=== PATIENT | female | born 1955 | race Caucasian/White ===

== ENCOUNTER → 2016-07-03 | Outpatient (CLI) | payer OTHER ==
[~2016-07-03] MED LIST: ASP325T PO; ASPI-587 PO; ASPI-999 PO; CHOL100084 PO; CLOP75TA PO; CLOP75TA69 PO; CYAN25005 PO; CYCL1DRO OU; DOCU-238 PO; EZET1TAB16 PO; LISI-552 PO; METF500T4 PO; MTP25TSR PO; OMEG1CAP24 PO; RAMI10CA PO; RMP5C PO; VITA100T6 PO
--- OUTSIDE RECORDS SUMMARY | 2016-07-03 07:12 | XMS REPORT | Continuity of Care Document ---
Author Author [facility] Organization [facility] Address Unknown Phone Unavailable Allergies Active Description Code Type Severity Reaction Onset Reported/Identified Relationship to Patient Clinical Status Yes codeine [id number] Drug Allergy Unknown N/A 06/20/2014 Yes codeine [id number] Drug Allergy Moderate DIZZY/NAUSEATED 07/24/2015 Medications Problems Date Dx Coded Attending Type Code Diagnosis Diagnosed By 06/13/2014 Ot 397.0 06/13/2014 Ot 401.9 06/13/2014 Ot 414.01 06/13/2014 Ot 424.0 06/13/2014 Ot 401.9 06/13/2014 Ot 414.00 06/13/2014 Ot 397.0 06/13/2014 Ot 414.00 06/13/2014 Ot 424.0 06/13/2014 Ot 786.09 06/30/2014 Ot 272.4 HYPERLIPIDEMIA NEC/NOS 06/30/2014 Ot 278.00 OBESITY, NOS 06/30/2014 Ot 300.00 ANXIETY STATE NOS 06/30/2014 Ot 305.1 TOBACCO USE DISORDER 06/30/2014 Ot 401.9 HYPERTENSION NOS 06/30/2014 Ot 414.01 CORONARY ATHEROSCLEROSIS OF [place] CORON 06/30/2014 Ot 414.4 CORONARY ATHEROSCLEROSIS DUE TO CALCIFIE 06/30/2014 Ot 794.30 ABN CARDIOVASC STUDY NOS 06/30/2014 Ot V45.82 PERCUTANEOUS TRANSLUM CORON ANGIOPLASTY 06/30/2014 Ot V58.69 OTH MED,LT,CURRENT USE 06/30/2014 Ot V85.33 BODY MASS INDEX 33.0-33.9, ADULT 07/03/2014 Ot 998.12 HEMATOMA COMPLIC A PROC 07/20/2015 ARCENIO SIGALA, DILMA Perez Ot Z01.818 ENCOUNTER FOR OTHER PREPROCEDURAL EXAMIN 07/20/2015 ARCENIO SIGALA, DILMA Perez Ot Z12.11 ENCOUNTER FOR SCREENING FOR MALIGNANT NE 07/21/2015 ARCENIO SIGALA, DILMA Perez Ot Z01.818 07/21/2015 DILMA RG MD Ot Z12.11 07/24/2015 ARCENIO SIGALA, DILMA Perez Ot K57.90 DVRTCLOS OF INTEST, PART UNSP, W/O PERF 07/24/2015 ARCENIO SIGALA, DILMA Perez Ot Z12.11 ENCOUNTER FOR SCREENING FOR MALIGNANT NE 07/24/2015 ARCENIO SIGALA, DILMA Perez Ot Z95.5 PRESENCE OF CORONARY ANGIOPLASTY IMPLANT 07/25/2015 ARCENIO SIGALA, DILMA Perez Ot K57.90 07/25/2015 ARCENIO SIGALA, DILMA Perez Ot Z12.11 07/25/2015 ARCENIO SIGALA, DILMA Perez Ot Z95.5 07/26/2015 ARCENIO SIGALA, DILMA Perez Ot Z01.818 07/26/2015 ARCENIO SIGALA, DILMA Perez Ot Z12.11 11/07/2015 Ot 401.9 HYPERTENSION NOS 11/07/2015 Ot 414.00 CORON ATHEROSCLER NOS TYPE VESSEL, NATIV 11/07/2015 Ot 397.0 TRICUSPID VALVE DISEASE 11/07/2015 Ot 414.00 CORON ATHEROSCLER NOS TYPE VESSEL, NATIV 11/07/2015 Ot 424.0 MITRAL VALVE DISORDER 11/07/2015 Ot 786.09 RESPIRATORY ABNORM NEC 11/07/2015 REAGAN SIGALA, DELFIN Huang Ot 272.4 HYPERLIPIDEMIA NEC/NOS 11/07/2015 REAGAN SIGALA, DELFIN Huang Ot 305.1 TOBACCO USE DISORDER 11/07/2015 REAGAN SIGALA, DELFIN Huang Ot 414.00 CORON ATHEROSCLER NOS TYPE VESSEL, NATIV 11/07/2015 DELFIN KIRK MD Ot 424.0 MITRAL VALVE DISORDER 11/07/2015 Ot 272.4 HYPERLIPIDEMIA NEC/NOS 11/07/2015 Ot 305.1 TOBACCO USE DISORDER 11/07/2015 Ot 414.00 CORON ATHEROSCLER NOS TYPE VESSEL, NATIV 11/07/2015 Ot 424.0 MITRAL VALVE DISORDER 11/08/2015 CARA QUIROGA Ot E78.2 MIXED HYPERLIPIDEMIA 11/08/2015 CARA QUIROGA Ot I10 ESSENTIAL (PRIMARY) HYPERTENSION 11/08/2015 CARA QUIROGA Ot I25.10 ATHSCL HEART DISEASE OF [place] CORONARY 11/08/2015 CARA QUIROGA Ot I34.0 NONRHEUMATIC MITRAL (VALVE) INSUFFICIENC 11/09/2015 LINDESY-MARISOL PA, CARA K Ot E78.2 MIXED HYPERLIPIDEMIA 11/09/2015 CLAUDIA PA, CARA K Ot I10 ESSENTIAL (PRIMARY) HYPERTENSION 11/09/2015 CLAUDIA GAMBINO, CARA K Ot I25.10 ATHSCL HEART DISEASE OF [place] CORONARY 11/09/2015 CLAUDIA PA, CARA K Ot I34.0 NONRHEUMATIC MITRAL (VALVE) INSUFFICIENC 11/24/2015 CLAUDIA PA, CARA K Ot E78.2 MIXED HYPERLIPIDEMIA 11/24/2015 CLAUDIA PA, CARA K Ot I10 ESSENTIAL (PRIMARY) HYPERTENSION 11/24/2015 CLAUDIA GAMBINO, CARA K Ot I25.10 ATHSCL HEART DISEASE OF [place] CORONARY 11/24/2015 CLAUDIA PA, CARA K Ot I34.0 NONRHEUMATIC MITRAL (VALVE) INSUFFICIENC 12/07/2015 CLAUDIA GAMBINO, CARA K Ot E78.2 MIXED HYPERLIPIDEMIA 12/07/2015 CLAUDIA GAMBINO, CARA K Ot I10 ESSENTIAL (PRIMARY) HYPERTENSION 12/07/2015 CLAUDIA GAMBINO, CARA K Ot I25.10 ATHSCL HEART DISEASE OF [place] CORONARY 12/07/2015 CLAUDIA GAMBINO, CARA K Ot I34.0 NONRHEUMATIC MITRAL (VALVE) INSUFFICIENC 12/07/2015 CLAUDIA GAMBINO, CARA K Ot E78.2 MIXED HYPERLIPIDEMIA 12/07/2015 CLAUDIA GAMBINO, CARA K Ot I10 ESSENTIAL (PRIMARY) HYPERTENSION 12/07/2015 CLAUDIA GAMBINO, CARA K Ot I25.10 ATHSCL HEART DISEASE OF [place] CORONARY 12/07/2015 CLAUDIA GAMBINO, CARA K Ot I34.0 NONRHEUMATIC MITRAL (VALVE) INSUFFICIENC 12/12/2015 CLAUDIA GAMBINO, CARA K Ot E78.2 MIXED HYPERLIPIDEMIA 12/12/2015 CLAUDIA PA, CARA K Ot I10 ESSENTIAL (PRIMARY) HYPERTENSION 12/12/2015 CLAUDIA PA, CARA K Ot I25.10 ATHSCL HEART DISEASE OF [place] CORONARY 12/12/2015 CLAUDIA GAMBINO, CARA K Ot I34.0 NONRHEUMATIC MITRAL (VALVE) INSUFFICIENC 12/13/2015 DELFIN KIRK MD Ot E11.9 TYPE 2 DIABETES MELLITUS WITHOUT COMPLIC 12/13/2015 DELFIN KIRK MD Ot E66.9 OBESITY, UNSPECIFIED 12/13/2015 DELFIN KIRK MD Ot E78.5 HYPERLIPIDEMIA, UNSPECIFIED 12/13/2015 DELFIN KIRK MD Ot I10 ESSENTIAL (PRIMARY) HYPERTENSION 12/13/2015 DELFIN KIRK MD Ot I25.10 ATHSCL HEART DISEASE OF [place] CORONARY 12/13/2015 DELFIN KIRK MD Ot I34.0 NONRHEUMATIC MITRAL (VALVE) INSUFFICIENC 12/13/2015 DELFIN KIRK MD Ot R94.39 ABNORMAL RESULT OF OTHER CARDIOVASCULAR 12/13/2015 DELFIN KIRK MD Ot Z72.0 TOBACCO USE 12/13/2015 DELFIN KIRK MD Ot Z79.899 OTHER ALF (CURRENT) DRUG THERAPY 12/13/2015 DELFIN KIRK MD Ot Z95.5 PRESENCE OF CORONARY ANGIOPLASTY IMPLANT 12/21/2015 CARA QUIROGA Ot E78.2 MIXED HYPERLIPIDEMIA 12/21/2015 CARA QUIROGA Ot I10 ESSENTIAL (PRIMARY) HYPERTENSION 12/21/2015 CARA QUIROGA Ot I25.10 ATHSCL HEART DISEASE OF [place] CORONARY 12/21/2015 CARA QUIROGA Ot I34.0 NONRHEUMATIC MITRAL (VALVE) INSUFFICIENC 12/25/2015 DELFIN KIRK MD Ot E11.9 TYPE 2 DIABETES MELLITUS WITHOUT COMPLIC 12/25/2015 DELFIN KIRK MD Ot E66.9 OBESITY, UNSPECIFIED 12/25/2015 DELFIN KIRK MD Ot E78.5 HYPERLIPIDEMIA, UNSPECIFIED 12/25/2015 DELFIN KIRK MD Ot I10 ESSENTIAL (PRIMARY) HYPERTENSION 12/25/2015 DELFIN KIRK MD Ot I25.10 ATHSCL HEART DISEASE OF [place] CORONARY 12/25/2015 DELFIN KIRK MD Ot I34.0 NONRHEUMATIC MITRAL (VALVE) INSUFFICIENC 12/25/2015 DELFIN KIRK MD Ot R94.39 ABNORMAL RESULT OF OTHER CARDIOVASCULAR 12/25/2015 DELFIN KIRK MD Ot Z72.0 TOBACCO USE 12/25/2015 DELFIN KIRK MD Ot Z79.899 OTHER ALF (CURRENT) DRUG THERAPY 12/25/2015 DELFIN KIRK MD Ot Z95.5 PRESENCE OF CORONARY ANGIOPLASTY IMPLANT 07/03/2016 Ot 397.0 TRICUSPID VALVE DISEASE 07/03/2016 Ot 414.00 CORON ATHEROSCLER NOS TYPE VESSEL, NATIV 07/03/2016 Ot 424.0 MITRAL VALVE DISORDER 07/03/2016 Ot 786.09 RESPIRATORY ABNORM NEC 07/03/2016 DELFIN KIRK MD Ot 272.4 HYPERLIPIDEMIA NEC/NOS 07/03/2016 DELFIN KIRK MD Ot 305.1 TOBACCO USE DISORDER 07/03/2016 DELFIN KIRK MD Ot 414.00 CORON ATHEROSCLER NOS TYPE VESSEL, NATIV 07/03/2016 DELFIN KIRK MD Ot 424.0 MITRAL VALVE DISORDER 07/03/2016 Ot 272.4 HYPERLIPIDEMIA NEC/NOS 07/03/2016 Ot 305.1 TOBACCO USE DISORDER 07/03/2016 Ot 414.00 CORON ATHEROSCLER NOS TYPE VESSEL, NATIV 07/03/2016 Ot 424.0 MITRAL VALVE DISORDER 07/03/2016 CARA QUIROGA Ot E78.2 MIXED HYPERLIPIDEMIA 07/03/2016 CARA QUIROGA Ot I10 ESSENTIAL (PRIMARY) HYPERTENSION 07/03/2016 CARA QUIROGA Ot I25.10 ATHSCL HEART DISEASE OF [place] CORONARY 07/03/2016 CARA QUIROGA Ot I34.0 NONRHEUMATIC MITRAL (VALVE) INSUFFICIENC 07/03/2016 CARA QUIROGA Ot E78.2 MIXED HYPERLIPIDEMIA 07/03/2016 CARA QUIROGA Ot I10 ESSENTIAL (PRIMARY) HYPERTENSION 07/03/2016 CARA QUIROGA Ot I25.10 ATHSCL HEART DISEASE OF [place] CORONARY 07/03/2016 CARA QUIROGA Ot I34.0 NONRHEUMATIC MITRAL (VALVE) INSUFFICIENC Procedures Results Test Result Range Automated blood complete blood count (hemogram) panel - 12/13/15 07:43 Blood leukocytes automated count (number/volume) 6.7 10*3/ uL 4.3-11.0 Blood erythrocytes automated count (number/volume) 4.96 10*6 /uL 4.35-5.85 Venous blood hemoglobin measurement (mass/volume) 15.0 g/dL 11.5-16.0 Blood hematocrit (volume fraction) 44 % 35-52 Automated erythrocyte mean corpuscular volume 89 [foz_us] 80-99 Automated erythrocyte mean corpuscular hemoglobin (mass per erythrocyte) 30 pg 25-34 Automated erythrocyte mean corpuscular hemoglobin concentration measurement ( mass/volume) 34 g/dL 32-36 Automated erythrocyte distribution width ratio 13.7 % 10.0-14.5 Automated blood platelet count (count/volume) 156 10*3/uL 130-400 Automated blood platelet mean volume measurement 10.1 [foz_ us] 7.4-10.4 Complete urinalysis with reflex to culture - 12/13/15 07:43 Urine color determination YELLOW NRG Urine clarity determination CLEAR NRG Urine pH measurement by test strip 5 5- 9 Specific gravity of urine by test strip 1.020 1.016-1.022 Urine protein assay by test strip, semi-quantitative NEGATIVE NEGATIVE Urine glucose detection by automated test strip NEGATIVE NEGATIVE Erythrocytes detection in urine sediment by light microscopy NEGATIVE NEGATIVE Urine ketones detection by automated test strip NEGATIVE NEGATIVE Urine nitrite detection by test strip NEGATIVE NEGATIVE Urine total bilirubin detection by test strip NEGATIVE NEGATIVE Urine urobilinogen measurement by automated test strip (mass/volume) NORMAL NORMAL Urine leukocyte esterase detection by dipstick NEGATIVE NEGATIVE Automated urine sediment erythrocyte count by microscopy (number/high power field) NONE NRG Automated urine sediment leukocyte count by microscopy (number/high power field ) NONE NRG Bacteria detection in urine sediment by light microscopy TRACE NRG Squamous epithelial cells detection in urine sediment by light microscopy 2-5 NRG Crystals detection in urine sediment by light microscopy NONE NRG Casts detection in urine sediment by light microscopy NONE NRG Mucus detection in urine sediment by light microscopy NEGATIVE NRG Complete urinalysis with reflex to culture NO NRG PT panel in platelet poor plasma by coagulation assay - 12/13/15 07:43 Prothrombin time (PT) in platelet poor plasma by coagulation assay 11.7 s 12.2-14.7 INR in platelet poor plasma or blood by coagulation assay 0.9 0.8-1.4 Activated partial thromboplastin time (aPTT) in platelet poor plasma bycoagulation assay - 12/13/15 07:43 Activated partial thromboplastin time (aPTT) in platelet poor plasma bycoagulation assay 29 s 24-35 Comprehensive metabolic panel - 12/13/15 07:43 Serum or plasma sodium measurement (moles/volume) 142 mmol/ L 135-145 Serum or plasma potassium measurement (moles/volume) 4.2 mmol/L 3.6-5.0 Serum or plasma chloride measurement (moles/volume) 109 mmol /L 98-107 Carbon dioxide 23 mmol/L 21-32 Serum or plasma anion gap determination (moles/volume) 10 mmol/L 5-14 Serum or plasma urea nitrogen measurement (mass/volume) 10 mg/dL 7-18 Serum or plasma creatinine measurement (mass/volume) 0.67 mg /dL 0.60-1.30 Serum or plasma urea nitrogen/creatinine mass ratio 15 NRG Serum or plasma creatinine measurement with calculation of estimated glomerular filtration rate > NRG Serum or plasma glucose measurement (mass/volume) 133 mg/dL 70-105 Serum or plasma calcium measurement (mass/volume) 9.3 mg/dL 8.5-10.1 Serum or plasma total bilirubin measurement (mass/volume) 0.5 mg/dL 0.1-1.0 Serum or plasma alkaline phosphatase measurement (enzymatic activity/volume) 71 U/L 40-136 Serum or plasma aspartate aminotransferase measurement (enzymatic activity/ volume) 23 U/L 5-34 Serum or plasma alanine aminotransferase measurement (enzymatic activity/volume ) 24 U/L 0-55 Serum or plasma protein measurement (mass/volume) 6.7 g/dL 6.4-8.2 Serum or plasma albumin measurement (mass/volume) 4.0 g/dL 3.2-4.5 Lipid 1996 panel - 12/13/15 07:43 Serum or plasma triglyceride measurement (mass/volume) 110 mg/dL <150 Serum or plasma cholesterol measurement (mass/volume) 158 mg /dL < 200 Serum or plasma cholesterol in HDL measurement (mass/volume) 54 mg/dL 40-60 Cholesterol in LDL [mass/volume] in serum or plasma by direct assay 83 mg/dL 1-129 Serum or plasma cholesterol in VLDL measurement (mass/volume) 22 mg/dL 5-40 Methicillin resistant Staphylococcus aureus (MRSA) screening culture - 07:43 Methicillin resistant Staphylococcus aureus (MRSA) screening culture NEG NRG Encounters ACCT No. Visit Date/Time Discharge Status Pt. Type Provider Facility Loc./Unit Complaint [id number] 12/13/2015 07:13:00 2015 13:45:00 DIS Outpatient DELFIN KIRK MD [facility] CATH ABNORMAL STRESS TEST [id number] 07/24/2015 06:46:00 2015 09:40:00 DIS Outpatient DILMA RG MD [facility] SDC SCREENING [id number] 07/20/2015 05:39:00 2015 15:03:00 DIS Outpatient DILMA RG MD [facility] PREOP SCREENING [id number] 06/14/2014 07:23:00 2014 23:59:59 CLS Outpatient DELFIN KIRK MD [facility] CARD CAD,HLP,MR,TOBACCO USE [id number] 07/03/2016 07:08:00 ACT Outpatient GIAN MAURICE [facility] RAD STRAIN OF OTHER MUSCLES [id number] 12/06/2015 10:29:00 ACT Outpatient CARA CANSECO [facility] CARD CAD,HTN,HLP,MR [id number] 11/07/2015 08:08:00 ACT Outpatient CARA CANSECO [facility] CARD CAD,HTN,HLP,MR [id number] 07/29/2014 16:54:00 Document Registration [id number] 07/03/2014 08:12:00 Document Registration [id number] 06/13/2014 10:13:00 Document Registration [id number] 07/01/2012 09:31:00 Document Registration [id number] 11/26/2010 07:08:00 Document Registration [id number] 07/18/2009 08:49:00 Document Registration
--- NOTE | 2016-07-03 11:30 | Diagnostic Imaging Report ---
EXAMINATION: MRI of the left knee without contrast. TECHNIQUE: Multiplanar, multisequence non contrast-enhanced MRI of the left lower extremity was accomplished. INDICATION: Injury, knee pain. COMPARISON: There are no previous exams available for comparison. FINDINGS: On the proton-dense sagittal series, there is a prominent area of increased signal within the substance of the posterior horn of the medial meniscus. There is a smaller area of increased signal in the anterior horn of the medial meniscus as well. These signal abnormalities do not communicate with the articular surfaces of the meniscus, however, and consequently are felt to be more likely due to degenerative disease than to a meniscus tear. The lateral meniscus is intact. The anterior and posterior cruciate ligaments, the quadriceps and infrapatellar tendons, the collateral ligaments, the biceps femoris tendon, and the iliotibial band show no evidence for an acute injury. There is no sign of a tear of either the medial or lateral retinaculum either. However, there is bone edema along the medial aspect of the patella. This may be secondary to a recent contusion and/or microfracture. There is no other abnormal signal arising from the osseous structures to suggest bone edema or a fracture. There is mild degenerative disease involving the articular surfaces of the medial and lateral femoral condyles, and there is moderate narrowing of the lateral aspect of the patellofemoral space. The knee joint is otherwise fairly well maintained. There is a small joint effusion present. Furthermore, there is a sizable loculated Linda's cyst. The cyst is not visualized in its entirety, but it measures 11-12 cm in length and 1.7 x 1.9 cm in maximum AP and transverse diameters. There is also some distortion of the musculature about the cyst. This may be secondary to extravasation of the cyst contents into the adjacent musculature with resultant edema/inflammation. There is also mild edema/inflammation of the musculature along the posterolateral aspect of the knee joint and on each side of the knee joint itself. IMPRESSION: 1. There is degenerative disease involving the medial meniscus, but there is no evidence for a tear of either meniscus. 2. The major ligaments and tendons are intact. 3. There does appear to be a small area of bone edema involving the medial aspect of the patella. Most likely, this is related to a recent contusion and/or microfracture. There is no acute bony abnormality noted otherwise. 4. There is a moderate joint effusion present, and there is generalized edema/inflammation of the soft tissue about the knee joint. There is also a lengthy Linda's cyst. The edema/inflammation of the musculature about the cyst may be secondary to partial extravasation of the cyst contents into the musculature. Dictated by: Dictated on workstation # [id number]
== END ==
LOC: RAD 07:08
PROVIDERS: ATTEND Nurse Practitioner
DX: S86.112A Strain of other muscle(s) and tendon(s) of posterior muscle group at lower leg level, left leg, initial encounter (principal); W19.XXXA Unspecified fall, initial encounter; Y92.481 Parking lot as the place of occurrence of the external cause; Y99.0 Civilian activity done for income or pay
CPT/HCPCS: 73721

== ENCOUNTER → 2017-06-25 | Outpatient (CLI) | payer BC, OTHER ==
[~2017-06-25] MED LIST changes: +CATHETER FLUSH 10 ML SYR IV PRN
[2017-06-25 13:05] VITALS: BP 136/75
--- NOTE | 2017-06-26 10:13 | STRESS TEST ---
DATE OF SERVICE: 06/25/2017 EXERCISE MYOVIEW STRESS TEST REPORT REFERRING PHYSICIAN: Dr. Alexis. Baseline heart rate is 82, baseline blood pressure 122/71. Baseline EKG is sinus rhythm with no ischemic changes. SUMMARY: The patient was injected with 9.51 mCi of technetium-99 Myoview and the resting images were obtained. Then, the patient started exercising with a baseline heart rate, blood pressure and EKG mentioned above. She was able to exercise for a total of 5 minutes on standard Natanael protocol. With peak exercise level, EKG was showing minimal nondiagnostic changes. Blood pressure was 215/106 at peak stress level. During recovery, heart rate and blood pressure returned to baseline. EKG returned to baseline. The resting and stress images were reviewed and compared in the short axis, horizontal long axis, and vertical long axis views. Review of the images showed breast attenuation affecting the quality of the images. There is decreased uptake involving the anteroapical segment with subtle reversibility. SSS is 3, SDS 2. TID value 0.91. On the gated images, the left ventricle appeared to be normal size with normal contractility. Calculated ejection fraction of 70%. CONCLUSION: 1. Fair exercise tolerance, a total of 5 minutes on standard Natanael protocol, total of 7 METS achieving 95% of maximum expected heart rate. 2. Minimal nondiagnostic EKG changes with exercise returned to baseline during recovery. 3. Breast attenuation affecting the quality of the images with typical female pattern. No significant ischemia or infarction was noted. 4. Normal left ventricular size with normal contractility. Calculated ejection fraction 70%. Job ID: [id number] DocumentID: [id number] Dictated Date: 06/26/2017 07:56:17 Online Marketing Strategist Date: 06/26/2017 10:12:50 Dictated By: DELFIN KIRK MD
== END ==
LOC: CARD 09:39
PROVIDERS: ATTEND Physician Assistant
DX: I25.10 Atherosclerotic heart disease of native coronary artery without angina pectoris (principal); I10 Essential (primary) hypertension; E78.5 Hyperlipidemia, unspecified; I07.1 Rheumatic tricuspid insufficiency
CPT/HCPCS: 78452; 93017; 93306

== ENCOUNTER → 2020-10-11 | Outpatient (CLI) | payer MEDICARE, OTHER ==
[~2020-10-11] MED LIST changes: -DOCU-238 PO; +DOCU-241 PO; -LISI-552 PO; +LISI20TA26 PO; +METF-397 PO; -METF500T4 PO
[2020-10-11 13:12] VITALS: BP 109/64
--- NOTE | 2020-10-11 15:29 | Cardiology Stress Test Report ---
Stress Test Report Date of Procedure/Referring: Date of Procedure: Oct 11, 2020 Beverley Bedolla Admitting Physician Katelyn Alexis MD Indications: HTN Baseline Heart Rate: 72 Baseline Blood Pressure: Blood Pressure Systolic: 109 Blood Pressure Diastolic: 64 Vital Signs Date Time Temp Pulse Resp B/P (MAP) Pulse Ox O2 Delivery O2 Flow Rate FiO2 10/11/20 13:12 90 16 109/64 (79) 97 Room Air Baseline Vital Signs Vital Signs Date Time Temp Pulse Resp B/P (MAP) Pulse Ox O2 Delivery O2 Flow Rate FiO2 10/11/20 13:12 90 16 109/64 (79) 97 Room Air Baseline EKG: Baseline EKG: HTN Summary: After explaining the procedure and details to the patient, she signed the consent and was brought to the stress nuclear laboratory. Patient exercised on standard Natanael protocol, EKG, heart rate and blood pressure were monitored continuously, resting and stress doses of radio tracer were injected, imaging was acquired and reviewed in the short axis, horizontal long axis and vertical long axis views Patient was able to exercise for a total of 6.30 minutes on Natanael protocol, METs 7.9 Maximum heart rate 141 Maximum blood pressure 225/53 Stress EKG, Minimal nondiagnostic changes Recovery EKG, Return to baseline TID: 1.08 SSS: 3 SDS: 2 EF: 72 Conclusion: 1. Good exercise tolerance for 6-minute 30 seconds on standard Natanael protocol, 7.9 METS achieving 90% of maximal expected heart rate 2. Appropriate heart rate response to exercise with severe hypertensive res ponse to exercise with peak blood pressure 225/53 return to baseline during recovery 3. Minimal nondiagnostic EKG changes with exercise return to baseline during recovery 4. Breast attenuation with typical female pattern, no significant ischemia or infarction on SPECT images, mild decreased uptake at the anterior apical segment with mild reversibility 5. Normal left ventricular size, EF 72% DELFIN KIRK MD Oct 11, 2020 15:29
== END ==
LOC: CARD 11:00
PROVIDERS: ATTEND Physician Assistant
DX: I35.8 Other nonrheumatic aortic valve disorders (principal); I10 Essential (primary) hypertension; I25.10 Atherosclerotic heart disease of native coronary artery without angina pectoris
CPT/HCPCS: 78452; 93017; 93306; A9502

== ENCOUNTER → 2022-01-14 | Outpatient (REF) ==
[~2022-01-14] MED LIST changes: -CATHETER FLUSH 10 ML SYR IV PRN; -DOCU-241 PO; +DOCU-26 PO
--- NOTE | 2022-01-14 13:26 | Diagnostic Imaging Report ---
INDICATION: Trauma to great toe. FINDINGS: The alignment is normal. There is no fracture or dislocation. There are no radiopaque foreign bodies. Soft tissues are unremarkable. IMPRESSION: No acute fracture or dislocation. Dictated by: Dictated on workstation # [id number]
== END ==
LOC: OCC 12:49
PROVIDERS: ATTEND Nurse Practitioner Family
DX: S99.929A Unspecified injury of unspecified foot, initial encounter (principal); X58.XXXA Exposure to other specified factors, initial encounter
CPT/HCPCS: 73660

== ENCOUNTER → 2022-02-07 | Outpatient (CLI) | payer MEDICARE, OTHER ==
--- NOTE | 2022-02-07 15:47 | Diagnostic Imaging Report ---
Exam: MRI right foot without contrast. Date: February 07, 2022. Indication: 66-year-old female, injury of the right great toe. Redness and region of injury. Comparison: Right toe radiographs January 14, 2022. Technique: Multiple noncontrast MR sequences of the right foot were obtained. Findings: There is a skin defect dorsally located at the level of first distal phalanx which could relate to a soft tissue ulcer. Recommend correlation with physical exam. There is prominent underlying dorsal subcutaneous edema and fluid signal. Areas of abnormal signal in the soft tissues directly contact the first distal phalanx. There is some subtle T1 marrow signal loss in the first distal phalanx as well as edema throughout the first distal phalanx. There is no first interphalangeal joint effusion. There is no marrow signal abnormality in the first proximal phalanx. There is no evidence of tenosynovitis. There is no identified tendon tear. There is no identified focal fluid collection or abscess on noncontrast imaging assessment. There is dorsal subcutaneous edema of the foot. Impression: 1. Findings most concerning for acute osteomyelitis involving the entire extent of the first distal phalanx. 2. Dorsal skin defect at the level of the first distal phalanx likely reflecting soft tissue ulcer. Recommend correlation. 3. No identified focal fluid collection or abscess. 4. No evidence of tenosynovitis. Dictated by: Dictated on workstation # [id number]
== END ==
LOC: RAD 13:51
PROVIDERS: ATTEND Podiatrist Foot & Ankle Surgery
DX: S93.691A Other sprain of right foot, initial encounter (principal); X58.XXXA Exposure to other specified factors, initial encounter

== ENCOUNTER 2022-02-26 05:33 | Outpatient (CLI) | payer OTHER ==
[~2022-02-26] VITALS: Ht 167.7 cm; Wt 82.0 kg
[2022-03-01] MEDS ORDERED: ACHD5005 PO (14:56)
[2022-03-01] MEDS ORDERED: CEPH500C PO (14:56)
== END 2022-02-26 13:27 | disposition home or self-care (01) ==
LOC: PREOP 05:33
PROVIDERS: ATTEND Podiatrist Foot & Ankle Surgery
DX: Z01.818 Encounter for other preprocedural examination (principal)

== ENCOUNTER 2022-03-01 13:03 | Day surgery (SDC) | payer OTHER ==
[~2022-03-01] VITALS: Ht 167.7 cm; Wt 82.0 kg
[2022-03-01] MEDS ORDERED: LACTATED RINGERS 1,000 ML IV PRN (13:15)
[2022-03-01] MEDS ORDERED: ceFAZolin INJECTION 1,000 MG in NS (IVPB) 50 ML IV ONE (13:15)
[2022-03-01] MEDS ORDERED: LIDOCAINE 1% INJ 10 ML VIAL ONE (13:15)
[2022-03-01] MEDS ORDERED: BUPIVACAINE 0.5% 30 ML (SENSORCAINE) VIAL ONE (13:15)
[2022-03-01 13:17] VITALS: BP 142/88
[2022-03-01] MEDS ORDERED: fentaNYL INJ 100 MCG/2 ML AMP ONE (13:20)
[2022-03-01] MEDS ORDERED: proPOfol 200 MG/20 ML (DIPRIVAN) VIAL IV ONE (13:20)
[2022-03-01] MEDS ORDERED: LIDOCAINE PF 2% 5 ML (XYLOCAINE) VIAL ONE (13:20)
[2022-03-01] MEDS ORDERED: ONDANSETRON 4 MG/2 ML (SDV) Z0FRAN ONE (13:20)
[2022-03-01] MEDS ORDERED: MIDAZOLAM 2 MG/2 ML (VERSED) VIAL ONE (13:20)
[2022-03-01] MEDS ORDERED: METF-399 PO (13:50)
--- NOTE | 2022-03-01 13:53 | Progress Note-Pre Operative ---
Pre-Operative Progress Note Date of Available H&P: Mar 01, 2022 Date H&P Reviewed: Mar 01, 2022 Time H&P Reviewed: 13:53 Pre-Operative Diagnosis: Osteomyelitis right hallux MARLEN THOMSON DPAna Mar 01, 2022 13:53
[2022-03-01] MEDS ORDERED: LISI40TA9 PO ×2 (14:01)
[2022-03-01] MEDS ORDERED: ZINC10LO4 PO (14:01)
[2022-03-01] MEDS ORDERED: AMLO-250 PO (14:01)
[2022-03-01] MEDS ORDERED: CINN500C2 PO (14:01)
[2022-03-01] MEDS ORDERED: ASCO100024 PO (14:01)
[2022-03-01] MEDS ORDERED: METO50TA7 PO (14:01)
[2022-03-01] MEDS ORDERED: LACT1CAP74 PO (14:01)
[2022-03-01] MEDS ORDERED: BUPIVACAINE 0.5% 30 ML (SENSORCAINE) VIAL INJ ONE (14:23)
[2022-03-01] MEDS ORDERED: LIDOCAINE 1% INJ 10 ML VIAL INJ ONE (14:24)
[2022-03-01] MEDS ORDERED: PROPOFOL INJECTION 50 ML IV ONE (14:36)
[2022-03-01 14:49] VITALS: BP 133/70
--- NOTE | 2022-03-01 14:54 | Progress Note-Post Operative ---
Post-Operative Progess Note Surgeon (s)/Acid Dipper (s) Surgeon MARLEN THOMSON DPM Acid Dipper: None Pre-Operative Diagnosis Osteomyelitis right hallux Post-Operative Diagnosis Same Procedure & Operative Findings Date of Procedure 03/01/22 Procedure Performed/Findings Partial Amputation of the Right Hallux Anesthesia Type MAC Estimated Blood Loss Estimated blood loss (mL): Minimal Specimens/Packing Specimens Removed Distal Phalanx, right hallux Packing: None MARLEN THOMSON DPM Mar 01, 2022 14:53
[2022-03-01] MEDS ORDERED: CEPH500C PO (14:56)
[2022-03-01] MEDS ORDERED: ACHD5005 PO (14:56)
--- NOTE | 2022-03-01 14:58 | Anesthesia-General Post-Op ---
MAC Patient Condition Mental Status/LOC: Same as Preop Cardiovascular: Satisfactory Nausea/Vomiting: Absent Respiratory: Satisfactory Pain: Controlled Complications: Absent Post Op Complications Complications None Follow Up Care/Instructions Patient Instructions None needed. Anesthesiology Discharge Order Discharge Order Patient is doing well, no complaints, stable vital signs, no apparent adverse anesthesia problems. No complications reported per nursing. PATSY CLAYTON CRNA Mar 01, 2022 14:58
[2022-03-01 15:00] VITALS: BP 102/74
[2022-03-01] MEDS ORDERED: ONDANSETRON 4 MG/2 ML (SDV) Z0FRAN IVP PRN (15:00)
[2022-03-01] MEDS ORDERED: HYDROmorphone 2 MG/ML VIAL (DILAUDID) IV ONE (15:00)
[2022-03-01] MEDS ORDERED: HYDROcodone/APAP 5 MG/325 MG (LORTAB) TAB PO PRN (15:00)
[2022-03-01] MEDS ORDERED: LACTATED RINGERS 1,000 ML IV SCH (15:00)
[2022-03-01 15:10] VITALS: BP 110/83
[2022-03-01 15:15] VITALS: BP_SYST 121; BP_SYST 123; BP_DIAS 54; BP_DIAS 59
--- NOTE | 2022-03-01 15:36 | Physical Therapy Ortho Eval ---
PT Orthopedic Evaluation Type of Surgery osteomyelitis right hallux Prior Level of Function Current Living Status: Spouse Locomotion (Upon Admit): Independent patient was issued a RW Subjective Subjective Patient in bed pre tx, agrees to PT,has no complaints of pain. Entry Into Home: Stairs Without Railing Steps Into Home: 3 Motor Control Motor Control: Motor Control WNL ROM ROM: WFL Transfer SCALE: Activities may be completed with or without assistive devices. 1-Agaicoemep-qlscdxh completes the activity by him/herself with no assistance from a helper. 5-Set-up or Clean-up Assistance-helper sets up or cleans up; patient completes activity. Teague assists only prior to or following the activity. 4-Supervision or Touching Assistance-helper provides verbal cues and/or touching/steadying and/or contact guard assistance as patient completes activity. Assistance may be provided throughout the activity or intermittently. 3-Partial/Moderate Assistance-helper does LESS THAN HALF the effort. Teague lifts, holds or supports trunk or limbs, but provides less than half the effort. 2-Substantial/Maximal Assistance-helper does MORE THAN HALF the effort. Teague lifts or holds trunk or limbs and provides more than half the effort. 4-Ijzqscsin-pyhdzx does ALL the effort. Patient does none of the effort to complete the activity. Or, the assistance of 2 or more helpers is required for the patient to complete the activity. If activity was not attempted, code reason: 7-Patient Refused. 9-Not Applicable-not attempted and the patient did not perform the activity before the current illness, exacerbation or injury. 10-Not Attempted due to Environmental Limitations-(lack of equipment, weather restraints, etc.). 88-Not Attempted due to Medical Conditions or Safety Concerns. Transfers (B, C, W/C) (QC): 4 Gait Right Lower Extremity: Right Weight Bearing Status RLE: Partial Weight Bearing Left Lower Extremity: Left Weight Bearing Status LLE: Full Weight Bearing Summary/Comments Patient ambulated 150' with a rolling walker with CGA and went up and down 1 step using a rolling walker with CGA with cues for foot placement. Patient is NWB on the right foot, she says she was compliant with this but appeared to not be. Stairs #of Steps: 1 Walking Assistive Device: Walker Treatment Rendered Treatment: Therapeutic Exercises, Gait Train, Step Train Exercise Instruction: Ankle Pumps, Other (LAQ) Assessment/Goals Goal Time Frame: 1 Visit Understands HEP: Yes Safe Ambulation: Yes safe ambulation but appears to not be compliant with NWB on the RLE Plan Treatment Plan: Discharge PT/Family Agrees to Plan: Yes Time Time In: 1511 Time Out: 152 Total Billed Treatment Time: 14 Billed Treatment Time 1 visit EVL 14' RBIT PAREDES PT Mar 01, 2022 15:36
[2022-03-01 15:45] VITALS: BP 127/64
--- NOTE | 2022-03-01 17:31 | Diagnostic Imaging Report ---
HISTORY: Postop right foot. COMPARISON: 01/14/2022. TECHNIQUE: 2 views of the right foot. FINDINGS: There has been amputation of the right great toe at the interphalangeal joint. No erosions are seen. No radiopaque foreign body is identified. Alignment is normal. Joint spaces are generally preserved. No acute fracture is seen. IMPRESSION: Postsurgical changes from right great toe distal phalangeal amputation. Dictated by: Dictated on workstation # [id number]
--- NOTE | 2022-03-02 00:32 | OPERATIVE REPORT ---
DATE OF SERVICE: 03/01/2022 SURGEON: Shana Thomson DPM PREOPERATIVE DIAGNOSIS: Osteomyelitis, right hallux. POSTOPERATIVE DIAGNOSIS: Osteomyelitis, right hallux. PROCEDURE: Partial amputation of right hallux. WOUND CLASS: Contaminated. ANESTHESIA: Monitored anesthesia care. HEMOSTASIS: Pneumatic ankle tourniquet at 250 mmHg. INDICATIONS: This 66-year-old female presents with a chronic wound to the dorsal aspect of the right hallux toenail bed area. Conservative therapy has met with unsatisfactory results. The patient was diagnosed per MRI of osteomyelitis to the entire distal phalanx of the right hallux. We discussed the long-term IV antibiotics as well as removal of the infected bone. She has opted to have the bone removed. Risks and benefits were discussed at length with the patient and she is willing to proceed. DESCRIPTION OF PROCEDURE: The patient was brought back to the operating table and placed in secure supine position. Appropriate timeout was performed. The right foot was anesthetized utilizing 17 mL of 1:1 mixture of 1% Xylocaine and 0.5% Marcaine injected in a Recinos block. The right foot was then prepped and draped in the normal sterile manner. The right foot was then elevated after which the ankle tourniquet was inflated to 250 mmHg. Attention was then directed to the distal aspect of the right hallux where 2 incisions were created starting from the medial aspect of the interphalangeal joint extending dorsally over the interphalangeal joint area to meet up with the lateral aspect of the interphalangeal joint area. The second incision extended from the same starting point extending to the distal aspect of the toe at the hyponychium and around back to the lateral aspect of the interphalangeal joint. This created a plantar flap in preparation for closure. The incisions were deepened in the same plane down to bone and the interphalangeal joint was disarticulated after releasing the flexor and extensor tendons as well as the medial and lateral collateral ligaments. The distal phalanx was then sent for gross and microscopic evaluation after a sample of bone was taken for cultures and sensitivity. Inspection of the remaining right hallux. There was no necrosis, no purulent pocket. No gross signs of bacterial infection. The wound was irrigated with pulse irrigation utilizing 1000 mL of normal saline. After irrigation, a swab culture was taken prior to closure to confirm aseptic environment. The plantar flap was approximated to the dorsal aspect of the hallux without any significant skin tension utilizing simple interrupted type stitch with 4-0 Prolene. Once this was done, the tourniquet was released, noting appropriate capillary refill time to the right hallux including the plantar flap. Postoperative dressing consisted of Betadine-soaked Adaptic, sterile 4 x 4's, sterile Kerlix all secured with a Coban wrap. The patient tolerated the anesthesia and procedure well and was transported from the operating room to the recovery room with vital signs stable and vascular status intact to all the digits of the right foot including remaining right hallux. Prescription for Keflex as well as a hydrocodone was dispensed. The patient indicated preoperatively that she had an intolerance at some point to CODEINE; however, she has taken hydrocodone successfully in the past without complications. She is to have minimal weightbearing on the right lower extremity with heel contact only with crutches or walker. We will see her back in my office in 10 days time or sooner if necessary. Job ID: [id number] DocumentID: [id number] Dictated Date: 03/01/2022 15:03:36 Dining Room Manager Date: 03/02/2022 00:30:00 Dictated By: SHANA THOMSON DPM
== END 2022-03-01 16:00 | disposition home or self-care (01) ==
LOC: SDC 13:03
PROVIDERS: ATTEND Podiatrist Foot & Ankle Surgery
DX: M86.171 Other acute osteomyelitis, right ankle and foot (principal); Z87.891 Personal history of nicotine dependence; E66.9 Obesity, unspecified; Z68.31 Body mass index [BMI] 31.0-31.9, adult
CPT/HCPCS: 73620; 82947; 87070; 87075; 87077; 87081; 87186; 87205

== ENCOUNTER → 2022-12-02 | Outpatient (CLI) | payer MEDICARE, OTHER ==
[~2022-12-02] MED LIST changes: +ACHD5005 PO; +AMLO-250 PO; +ASCO100024 PO; +CEPH500C PO; +CINN500C2 PO; +CLOP-31 PO; -CLOP75TA69 PO; +LACT1CAP74 PO; +LISI40TA9 PO; +METF-399 PO; +METO50TA7 PO; +ZINC10LO4 PO
== END ==
LOC: CARD 12:44
PROVIDERS: ATTEND Physician Assistant
DX: I11.9 Hypertensive heart disease without heart failure (principal); I08.0 Rheumatic disorders of both mitral and aortic valves; I25.10 Atherosclerotic heart disease of native coronary artery without angina pectoris
CPT/HCPCS: 93306

== ENCOUNTER 2023-02-05 06:49 | Day surgery (SDC) | payer MEDICARE, OTHER ==
[2023-02-05] VITALS (17 sets, daily range): BP systolic 111–147; BP diastolic 54–75
[~2023-02-05] VITALS: Ht 167.6 cm; Wt 86.0 kg
[2023-02-05] MEDS ORDERED: LIDOCAINE 1% INJ 20 ML VIAL ONE (06:52)
[2023-02-05] MEDS ORDERED: NS IV 1000 ML 1,000 ML ONE (06:53)
[2023-02-05] MEDS ORDERED: HEParin (CATH LAB) 2,000 ML IV ONE (06:53)
[2023-02-05] MEDS ORDERED: NS IV 1000 ML 1,000 ML IV SCH ×2 (07:15→09:00)
[2023-02-05 07:25] LABS: HEMOGLOBIN 15.3 g/dL (11.5-16.0)
--- NOTE | 2023-02-05 07:32 | Cardiac Procedure Note-CS/ASA ---
Pre-Procedure Note Pre-Op Procedure Note Date of Available H&P: Jan 23, 2023 Date H&P Reviewed: Feb 05, 2023 Time H&P Reviewed: 07:31 History & Physical: H&P Reviewed, Patient Examed, No changes noted Pre-Operative Diagnosis: CAD Moderate Sedation PreProcedure Time 07:31 ASA Score 3 Airway Lungs Heart ASA score ASA 1: a normal healthy patient ASA 2: a patient with a mild systemic disease (mid diabetes, controlled hypertension, obesity ASA 3: a patient with a severe systemic disease that limits activity (angina, COPD, prior Myocardial infarction) ASA 4: a patient with an incapacitating disease that is a constant threat to life (CHF, renal failure) ASA 5: a moribund patient not expected to survive 24 hrs. (ruptured aneurysm) ASA 6: a declared brain- patient whose organs are being harvested. For emergent operations, add the letter E after the classification Mallampati Classification Grade 3 Sedation Plan Analgesia, Amnesia, Plan communicated to team members, Discussed options with patient/fam, Discussed risks with patient/fam The patient is an appropriate candidate to undergo the planned procedure, sedation, and anesthesia. The patient immediately re-assessed prior to indication. DELFIN KIRK MD Feb 05, 2023 07:32
[2023-02-05 07:35] LABS: BILIRUBIN,URINE NEGATIVE (NEGATIVE); CLARITY,URINE CLEAR; COLOR,URINE YELLOW; GLUCOSE, URINE (UA) 3+ (NEGATIVE); INR 0.9 (0.8-1.4); KETONES,URINE NEGATIVE (NEGATIVE); LEUKOCYTE ESTERASE ,URINE NEGATIVE (NEGATIVE); NITRITE,URINE NEGATIVE (NEGATIVE); PH,URINE 5.5 (5-9); PROTEIN,URINE NEGATIVE (NEGATIVE); PROTHROMBIN TIME PATIENT 12.3 SEC (12.2-14.7)
[2023-02-05 07:36] LABS: BACTERIA,URINE FEW /HPF; RBC,URINE 0-2 /HPF; WBC,URINE 0-2 /HPF; YEAST,URINE FEW /HPF
[2023-02-05] MEDS ORDERED: NITRO DRIP 25000 MCG/D5W 250 ML IV ONE (07:38)
[2023-02-05] MEDS ORDERED: VERAPAMIL 5 MG/2 ML (CALAN) VIAL IV ONE (07:38)
[2023-02-05] MEDS ORDERED: fentaNYL INJECTION 100 MCG/2 ML VIAL ONE (07:38)
[2023-02-05] MEDS ORDERED: HEParin 1000 UNIT/ML (10ML VIAL) FOR BOLUS ONE (07:38)
[2023-02-05] MEDS ORDERED: MIDAZOLAM INJ 5 MG/5 ML VIAL ONE (07:38)
[2023-02-05 07:44] LABS: ALBUMIN 4.1 GM/DL (3.2-4.5); BILIRUBIN,TOTAL 0.7 MG/DL (0.1-1.0); CREATININE SERUM 0.65 MG/DL (0.60-1.30); TOTAL PROTEIN 6.7 GM/DL (6.4-8.2)
--- NOTE | 2023-02-05 08:04 | Diagnostic Imaging Report ---
INDICATION: Coronary artery disease COMPARISON: 12/13/2015 FINDINGS: The lungs are clear. The heart size and configuration normal. No failure, effusion or pneumothorax. IMPRESSION: Normal frontal chest. Dictated by: Dictated on workstation # [id number]
[2023-02-05] MEDS ORDERED: ASPIRIN 325 MG TABLET ONE (08:51)
[2023-02-05] MEDS ORDERED: CLOPIDOGREL 300 MG TABLET PO ONE (08:52)
[2023-02-05] MEDS ORDERED: amLODIPine 5 MG TABLET PO SCH ×2 (09:00→13:30)
[2023-02-05] MEDS ORDERED: PANTOPRAZOLE 40 MG TABLET PO SCH (09:00)
--- NOTE | 2023-02-05 09:02 | Cardiac Cath Report ---
Cardiac Cath Report Physician (s)/Pipe Bender (s) Physician DELFIN KIRK MD Pre-Procedure Diagnosis Pre-Procedure Diagnosis: CAD Post-Procedure Note Procedure Start Date: Feb 05, 2023 Name of Procedure: Left heart catheterization IFR to the LAD Stenting to the LAD Findings/Procedure Note PROCEDURE NOTE: 67-year-old lady with history of coronary artery disease, multiple interventions and stents, had 2 stents to the right coronary artery and 1 stent to the mid LAD in the past. Had an abnormal stress test with anterior wall ischemia, cardiac catheterization was advised. After explaining the procedure to the patient, all pros and cons were explained, all questions were answered. The patient signed the consent and then she was placed in the cardiac catheterization laboratory. Groin was prepped in SL fashion local anesthesia was used. Sheath placed in the right radial artery, [place] catheter was advanced to the left ventricular cavity, pressure was measur ed, pullback LV to aorta was done, engage the right and left coronary system, angiogram was done. Patient received a total of 6000 units of heparin. Patient has 70 to 80% stenosis in the proximal and mid LAD. iFR wire was advanced and baseline IFR was 0.78. I proceeded with balloon angioplasty for the in-stent restenosis using 2.5 x 20 mm balloon. Repeat IFR was 0.79. I proceeded with stent deployment in the proximal LAD using 3 x 18 mm Skypoint stent deployed under 15 carlos to 3.15 mm. Angiogram showed no residual stenosis, IFR postintervention was 0.87. At the end of the procedure the sheath was removed. Vascular band was used FINDINGS: Hemodynamics LV 131/18, end-diastolic pressure of 18 Aorta 132/78 mean of 103 ANATOMY: Left Main is free of obstructive disease Left Anterior Descending has 70% proximal LAD stenosis, 70% in-stent restenosis in the mid LAD successful balloon angioplasty to the mid LAD and stent deployment to the proximal LAD using Skypoint 3 x 18 mm expanded to 3.1 mm with 0% residual stenosis Left Circumflex is moderate in size with 10% stenosis in the mid circumflex artery nonobstructive disease Right Coronary Artery is moderate in size dominant artery with patent stent in the proximal and mid right coronary artery with no obstructive disease LV Gram was not done, pressure was measured PERCUTANEOUS INTERVENTION: Pre stenosis 70% Post Stenosis 0% Pre JARAD flow 3 Post JARAD flow 3 Dominance right coronary artery CONCLUSION: 70% proximal LAD stenosis and 70% in-stent restenosis in the mid LAD with IFR 0.78 successful balloon angioplasty to the in-stent restenosis and deployment of proximal LAD stent with Skypoint 3 x 18 mm expanded to 3.1 mm with 0% residual stenosis 10% mid circumflex artery stenosis, patent stent in the right coronary artery in the proximal and mid with no obstructive disease Mildly elevated left ventricular end-diastolic pressure DISCUSSION AND RECOMMENDATION: Patient was loaded with aspirin and Plavix, we will continue monitoring Anesthesia Type: Conscious Sedation Estimated blood loss (mL): 20 ml Contrast Amount: 132 ml Total Radiation Dose: 1143 mGy Post-Procedure Diagnosis Post-operative diagnosis: Chest pain Coronary artery disease Hypertension Hyperlipidemia DELFIN KIRK MD Feb 05, 2023 09:02
[2023-02-05] MEDS ORDERED: OMEG100032 PO (09:03)
[2023-02-05] MEDS ORDERED: MULT-1136 PO (09:03)
[2023-02-05] MEDS ORDERED: EZET-61 PO (09:03)
[2023-02-05] MEDS ORDERED: CAYE450C4 PO (09:20)
[2023-02-05] MEDS ORDERED: CINN500C2 PO (09:20)
[2023-02-05] MEDS ORDERED: CIDE300T3 PO (09:20)
[2023-02-05] MEDS ORDERED: VITA1TAB17 PO (09:31)
[2023-02-05] MEDS ORDERED: ZINC50TA51 PO (09:31)
[2023-02-05] MEDS ORDERED: PATIENT MAY USE OWN MEDS, ALL MC SCH (11:00)
[2023-02-05] MEDS ORDERED: CLOP75TA28 PO (14:44)
--- NOTE | 2023-02-05 14:45 | Discharge Inst-Post CATH ---
Discharge Inst-CATH/EP Problems Reviewed?: Yes Post Cardiac Cath/EP D/C Inst Follow Up/Plan Appointment with Dr Lal in 2-4 weeks <b>CARDIAC CATH/EP PROCEDURE DISCHARGE INSTRUCTIONS</b> ACTIVITY * Go Home directly and rest. * Limit activity of the leg (or wrist if it was used) for 7 days including aerobics, swimming, jogging, bicycling, etc. * Restrict stair-climbing for 7 days if possible, if not, climb up with your non-cath leg, then bring together on the same step. * Avoid lifting, pushing, pulling or excessive movement of the affected extremity for 7 days. * Customary sexual activity may be resumed after 2 days-use caution not to use a position that strains or causes pain to the affected extremity. * No driving for 24 hours. * NO SMOKING. * Avoid straining for bowel movements for 7 days. * Gentle walking on level ground is allowed. * Returning to work will depend on the type of procedure and the results. Your doctor will discuss this with you. CALL YOUR DOCTOR FOR ANY OF THE FOLLOWING: *If bleeding from the puncture site occurs- Apply gentle pressure to site with clean cloth and call your doctor or EMS. * If a knot or lump forms under the skin, increases in size, or causes pain. * If bruising appears to be worsening or moving further down your leg instead of disappearing. * Temperature above 101 F. CARE OF YOUR GROIN INCISION; * Bruising or purple discoloration of the skin near the puncture site is common. * You may shower only, no bathtub bathing for 5 days. Be careful to avoid slipping as your leg may feel stiff. * If a closure device was used on your femoral artery, please see the attached guide regarding care of the device and your leg. * Leave dressing on FOR 24 hours. CARE OF YOUR WRIST INCISION; * Bruising or purple discoloration of the skin near the puncture site is common. * You may shower. * DO NOT submerge wrist. * Leave dressing on FOR 24 hours. DELFIN LAL MD Feb 05, 2023 14:45
[2023-02-06] MEDS ORDERED: CLOPIDOGREL 75 MG TABLET PO SCH (09:00)
[2023-02-06] MEDS ORDERED: ASPIRIN enteric coated 81MG TABLET PO SCH (09:00)
== END 2023-02-05 15:35 | disposition home or self-care (01) ==
LOC: CATH 06:49 → CSD 08:54 → EDSTATUS 09:00 → CSD 15:35 → CATH 15:35
PROVIDERS: ATTEND Internal Medicine Cardiovascular Disease
DX: T82.855A Stenosis of coronary artery stent, initial encounter (principal); I25.10 Atherosclerotic heart disease of native coronary artery without angina pectoris; I10 Essential (primary) hypertension; E66.9 Obesity, unspecified; I70.0 Atherosclerosis of aorta; I08.1 Rheumatic disorders of both mitral and tricuspid valves; I65.23 Occlusion and stenosis of bilateral carotid arteries; E78.2 Mixed hyperlipidemia; F17.210 Nicotine dependence, cigarettes, uncomplicated; Z95.5 Presence of coronary angioplasty implant and graft; Z68.30 Body mass index [BMI] 30.0-30.9, adult
CPT/HCPCS: 71045; 80053; 80061; 81000; 85027; 85610; 85730; 87081; 87088; 93005; 93458; 93571; C1725; C1769 ×2; C1874; C1887; C1894; C9600; 36415